=== PATIENT | male | born 1980 | race Caucasian/White ===

== ENCOUNTER 2019-05-04 22:43 | Emergency (ER) | payer OTHER ==
[2019-05-04 22:49] VITALS: BP 153/97; PULSE 116; RESP 20; TEMP 98.5
--- NOTE | 2019-05-04 23:36 | XR ---
EXAMINATION TYPE: XR elbow limited LT DATE OF EXAM: 05/04/2019 COMPARISON: NONE HISTORY: Pain and swelling TECHNIQUE: 2 views FINDINGS: There is some soft tissue swelling around the elbow joint. There is posterior fat pad sign. I see no fracture line. Joint spaces appear normal. IMPRESSION: Elbow joint effusion. Occult fracture is possible. No displaced fracture seen.
--- NOTE | 2019-05-04 23:51 | ED ---
General Adult HPI - General Chief complaint: Extremity Injury, Upper Stated complaint: L Elbow injury Time Seen by Provider: 05/04/19 23:01 Source: patient, RN notes reviewed, old records reviewed Mode of arrival: ambulatory Limitations: no limitations - History of Present Illness Initial comments: 38-year-old male patient presents to ED for chief complaint of left elbow pain. Patient poor to use it with a glass bottle approximately 3 hours ago. Patient reports that he has swelling and pain. Patient denies any other complaints, denies any other injury. Systemic: Pt denies fatigue, fever/chills, rash. Pt denies weakness, night sweats, weight loss. Neuro: Pt denies headache, visual disturbances, syncope or pre-syncope. HEENT: Pt denies ocular discharge or irritation, otalgia, rhinorrhea, pharyngitis or notable lymphadenopathy. Cardiopulmonary: Pt denies chest pain, SOB, heart palpitations, dyspnea on exertion. Abdominal/GI: Pt denies abdominal pain, n/v/d. : Pt denies dysuria, burning w/ urination, frequency/urgency. Denies new onset urinary or bowel incontinence. Neuro: Pt denies new onset weakness, paresthesias. - Related Data Allergies Allergy/AdvReac Type Severity Reaction Status Date / Time Penicillins Allergy Unknown Verified 05/04/19 22:49 Childhood Review of Systems ROS Statement: Those systems with pertinent positive or pertinent negative responses have been documented in the HPI. ROS Other: All systems not noted in ROS Statement are negative. Past Medical History Past Medical History: No Reported History History of Any Multi-Drug Resistant Organisms: None Reported Past Surgical History: No Surgical Hx Reported Past Psychological History: No Psychological Hx Reported Smoking Status: Current every day smoker Past Alcohol Use History: Daily Past Drug Use History: None Reported General Exam - General Exam Comments Initial Comments: Constitutional: NAD, AOX3, Pt has pleasant affect. HEENT: NC/AT, trachea midline, neck supple, no lymphadenopathy. Posterior pharynx non erythematous, without exudates. External ears appear normal, without discharge. Mucous membranes moist. Eyes PERRLA, EOM intact. There is no scleral icterus. No pallor noted. Cardiopulmonary: RRR, no murmurs, rubs or gallops, no JVD noted. Lungs CTAB in anterior and posterior short. No peripheral edema. Abdominal exam: Abdomen soft and non-distended. Abdomen non-tender to palpation in all 4 quadrants. Bowel sounds active in LLQ. No hepatosplenomegaly. No ecchymosis Neuro: CN II-XII grossly intact. No nuchal rigidity. No raccon eyes, no gu sign, no hemotympanum. No cervical spinal tenderness. MSK: Soft tissue swelling noted at posterior left elbow. Distal pulses intact and equal. Range of motion limited secondary to pain. Patient sensation intact. No posterior calf tenderness bilaterally, homans sign negative bilaterally. Posterior tibialis and radial pulse +2 bilaterally. Sensation intact in upper and lower extremities. Limitations: no limitations Course Vital Signs 05/04/19 22:46 Temperature 98.5 F Pulse Rate 116 H Respiratory 20 Rate Blood Pressure 153/97 O2 Sat by Pulse 99 Oximetry Medical Decision Making - Medical Decision Making 38-year-old male patient presents to ED for chief complaint of left elbow pain. Patient poor to use it with a glass bottle approximately 3 hours ago. Patient reports that he has swelling and pain. Patient denies any other complaints, denies any other injury. Physical exam displayed: Soft tissue swelling noted at posterior left elbow. Distal pulses intact and equal. Range of motion limited secondary to pain. Patient sensation intact during initial evaluation patient reported that he had a family emergency mostly medially. Plain films were taken at this time. Recommended patient to stay for films are read by radiologist, patient declined. I commended placing patient in a splint. Patient declined. Patient did provide a phone number. Patient was called immediately with results. This displayed posterior fat pad sign with suspicion for possible occult fracture. Recommended patient to return to Hospital admission declined. Patient left AMA, risks and benefits were discussed. [facility] for [facility] was provided to patient via telephone. Case discussed with Dr. Abdi. Disposition Clinical Impression: Elbow pain Disposition: Left Against Medical Advice Condition: Undetermined Is patient prescribed a controlled substance at d/c from ED?: No Referrals: None,Stated [Primary Care Provider] - 1-2 days
== END 2019-05-04 23:30 | disposition left against medical advice (07) ==
LOC: EC 22:43
DX: M25.522 Pain in left elbow (principal); F17.200 Nicotine dependence, unspecified, uncomplicated; Z91.19 Patient's noncompliance with other medical treatment and regimen; Z88.0 Allergy status to penicillin
CPT/HCPCS: 99283